=== PATIENT | male | born 1985 | race Hispanic/Latino ===

== ENCOUNTER 2024-08-19 14:00 | Emergency (ER) | payer OTHER ==
[~2024-08-19] VITALS: Ht 175.3 cm; Wt 85.9 kg
[2024-08-19] MEDS ORDERED: SUMA50TA2 PO (14:10)
[2024-08-19 16:11] VITALS: BP 134/68; TEMP 97.1; O2SAT 99
[2024-08-19] MEDS: KETOROLAC 30 MG/ML 1ML VIAL IV ONE (17:03)
[2024-08-19] MEDS: METOCLOPRAMIDE INJ 10MG/2ML VIAL IV ONE (17:03)
[2024-08-19] MEDS: diphenhydrAMINE 50MG/ML VIAL IV ONE (17:03)
[2024-08-19] MEDS: NS 1,000 ML IV ONE (17:04)
[2024-08-19] MEDS: ACETAMINOPHEN 500 MG TAB PO ONE (17:04)
[2024-08-19 17:26] LABS: BASO % 0.5 % (0.0-1.0); EOS # 0.1 10^3/uL (0.0-0.5); EOS % 0.9 % (0.0-3.0); HEMATOCRIT 44.1 % (42.0-52.0); HEMOGLOBIN 14.9 g/dl (13.5-17.5); LYMPH # 3.6 10^3/uL (1.5-5.0); LYMPH % 41.4 % (24.0-44.0); MEAN CORPUSCULAR HEMOGLOBIN 28.9 pg (27.0-33.0); MEAN CORPUSCULAR HGB CONC 33.8 g/dl (32.0-36.5); MEAN CORPUSCULAR VOLUME 85.6 fl (80.0-96.0); MONO # 0.8 10^3/uL (0.0-0.8); MONO % 8.7 % (2.0-8.0); NEUTROPHILS # 4.2 10^3/uL (1.5-8.5); NEUTROPHILS % 48.3 % (36.0-66.0); PLATELET COUNT, AUTOMATED 217 10^3/uL (150-450); RED BLOOD COUNT 5.15 10^6/uL (4.30-6.10); WHITE BLOOD COUNT 8.7 10^3/uL (4.0-10.0)
[2024-08-19 17:52] LABS: BLOOD UREA NITROGEN 15 MG/DL (9-23); CALCIUM LEVEL 9.3 MG/DL (8.5-10.1); CARBON DIOXIDE LEVEL 30 MMOL/L (20-31); CHLORIDE LEVEL 103 MMOL/L (98-107); CREATININE FOR GFR 0.91 MG/DL (0.70-1.30); GLOMERULAR FILTRATION RATE > 60.0 (>60); GLUCOSE, FASTING 70 MG/DL (60-100); SODIUM LEVEL 142 MMOL/L (136-145)
== END 2024-08-19 18:48 | disposition home or self-care (01) ==
LOC: M ED 14:00
DX: G43.909 Migraine, unspecified, not intractable, without status migrainosus (principal); K21.9 Gastro-esophageal reflux disease without esophagitis; Z79.899 Other long term (current) drug therapy
CPT/HCPCS: 70450; 80048; 85025; 87486; 87581; 87633; 87798; 96361; 96374; 99284; J1200; J1885; J2765

== ENCOUNTER → 2024-11-03 | Day surgery (SDC) | payer OTHER ==
[~2024-11-03] VITALS: Ht 175.3 cm; Wt 83.5 kg
[~2024-11-03] MED LIST: FAMO-142 PO; GLYCOPYRROLATE INJ 0.2 MG/ML 2 ML VIAL As Ordered ONE; HYDROMORPHONE HCL 0.5 MG/ 0.5 ML SYRINGE IV PRN; IBUP-1729; KETOROLAC 60MG 2ML VIAL As Ordered ONE; LIDOCAINE 1% SDV 5ML VIAL PN ONE; LIDOCAINE 1% SDV 5ML VIAL SC PRN; LIDOCAINE 2% 100MG/5ML SDV (FOR ANES.) As Ordered ONE; LR 1,000 ML IV SCH; MIDAZOLAM INJ 2MG/2ML VIAL As Ordered ONE; ONDANSETRON 4MG 2ML VIAL As Ordered ONE; ONDANSETRON 4MG 2ML VIAL IV PRN; ROCURONIUM BROMIDE 50MG/5ML VIAL As Ordered ONE; ROPIvacaine 0.5% 30ML VIAL PN ONE; SUGAMMADEX SODIUM 500 MG/5 ML VIAL (BRIDION) As Ordered ONE; SUMA100T2 PO; SUMA50TA2 PO; TADA5TAB94; THERTAB52 PO; TRANEXAMIC ACID 100 MG/ML 10ML VIAL As Ordered ONE; dexAMETHasone 10MG/1ML VIAL PRES.FREE PN ONE; ePHEDrine SULFATE 25 MG/5 ML(5MG/ML) SYRINGE As Ordered ONE; fentaNYL 100 MCG/2 ML INJECTION As Ordered ONE; fentaNYL 100 MCG/2 ML INJECTION IV PRN; oxyCODONE 5MG TAB PO PRN; propofoL 200 MG/20 ML VIAL As Ordered ONE
[2024-11-03] MEDS: fentaNYL 100 MCG/2 ML INJECTION IV PRN (13:40)
[2024-11-03] MEDS: MIDAZOLAM INJ 2MG/2ML VIAL IV PRN (13:40)
[2024-11-03] MEDS: ceFAZolin SOD 2 GM in IV 1 EA IV ONE (14:10)
[2024-11-03] MEDS: TRANEXAMIC ACID 100 MG/ML 10ML VIAL IV ONE (14:15)
[2024-11-03] MEDS: EPINEPHrine 1MG/ML INJ 30ML MD-VIAL As Ordered ONE (16:30)
[2024-11-03] MEDS: VANCOMYCIN 1000MG/20ML VIAL As Ordered ONE (16:53)
[2024-11-03 18:26] VITALS: BP 115/56; TEMP 97.2; O2SAT 96
== END | disposition home or self-care (01) ==
LOC: M SDC 11:54
PROVIDERS: ATTEND Orthopaedic Surgery
DX: S43.491A Other sprain of right shoulder joint, initial encounter (principal); M19.011 Primary osteoarthritis, right shoulder; Y93.B3 Activity, free weights; G43.909 Migraine, unspecified, not intractable, without status migrainosus; Y92.9 Unspecified place or not applicable; Y99.1 Military activity; K21.9 Gastro-esophageal reflux disease without esophagitis; Z79.899 Other long term (current) drug therapy; Z87.891 Personal history of nicotine dependence
CPT/HCPCS: 29807; C1713; J0171; J0690; J1100; J1596; J1885; J2250; J2405; J3010

== ENCOUNTER 2024-11-13 12:49 | Emergency (ER) | payer OTHER ==
[~2024-11-13] VITALS: Ht 175.3 cm; Wt 86.2 kg
[~2024-11-13 12:49] MED LIST changes: -GLYCOPYRROLATE INJ 0.2 MG/ML 2 ML VIAL As Ordered ONE; -HYDROMORPHONE HCL 0.5 MG/ 0.5 ML SYRINGE IV PRN; -KETOROLAC 60MG 2ML VIAL As Ordered ONE; -LIDOCAINE 1% SDV 5ML VIAL PN ONE; -LIDOCAINE 1% SDV 5ML VIAL SC PRN; -LIDOCAINE 2% 100MG/5ML SDV (FOR ANES.) As Ordered ONE; -LR 1,000 ML IV SCH; -MIDAZOLAM INJ 2MG/2ML VIAL As Ordered ONE; -ONDANSETRON 4MG 2ML VIAL As Ordered ONE; -ONDANSETRON 4MG 2ML VIAL IV PRN; -ROCURONIUM BROMIDE 50MG/5ML VIAL As Ordered ONE; -ROPIvacaine 0.5% 30ML VIAL PN ONE; -SUGAMMADEX SODIUM 500 MG/5 ML VIAL (BRIDION) As Ordered ONE; -TRANEXAMIC ACID 100 MG/ML 10ML VIAL As Ordered ONE; -dexAMETHasone 10MG/1ML VIAL PRES.FREE PN ONE; -ePHEDrine SULFATE 25 MG/5 ML(5MG/ML) SYRINGE As Ordered ONE; -fentaNYL 100 MCG/2 ML INJECTION As Ordered ONE; -fentaNYL 100 MCG/2 ML INJECTION IV PRN; -oxyCODONE 5MG TAB PO PRN; -propofoL 200 MG/20 ML VIAL As Ordered ONE
[2024-11-13] MEDS: KETOROLAC 30 MG/ML 1ML VIAL IV ONE (15:39)
[2024-11-13 15:42] LABS: BASO % 0.3 % (0.0-1.0); EOS % 0.3 % (0.0-3.0); HEMATOCRIT 45.4 % (42.0-52.0); HEMOGLOBIN 15.1 g/dl (13.5-17.5); LYMPH # 1.9 10^3/uL (1.5-5.0); LYMPH % 16.2 % (24.0-44.0); MEAN CORPUSCULAR HEMOGLOBIN 28.3 pg (27.0-33.0); MEAN CORPUSCULAR HGB CONC 33.3 g/dl (32.0-36.5); MEAN CORPUSCULAR VOLUME 85.2 fl (80.0-96.0); MONO # 1.1 10^3/uL (0.0-0.8); NEUTROPHILS # 8.8 10^3/uL (1.5-8.5); NEUTROPHILS % 73.8 % (36.0-66.0); PLATELET COUNT, AUTOMATED 220 10^3/uL (150-450); RED BLOOD COUNT 5.33 10^6/uL (4.30-6.10)
[2024-11-13 15:58] LABS: INR 0.98; PROTHROMBIN TIME 13.3 SECONDS (12.5-14.5)
[2024-11-13 16:15] LABS: ALBUMIN 4.4 G/DL (3.2-5.2); ALKALINE PHOSPHATASE 65 U/L (40-129); ALT/SGPT 44 U/L (7.0-40); AST/SGOT 21 U/L (<34); BILIRUBIN,DIRECT 0.2 MG/DL (<0.4); BILIRUBIN,TOTAL 1.2 MG/DL (0.3-1.2); TOTAL PROTEIN 7.8 G/DL (5.7-8.2)
[2024-11-13] MEDS ORDERED: ISOVUE-370 76% 100ML VIAL As Ordered ONE (16:30)
[2024-11-13 16:56] LABS: CK-MB VALUE MASS < 1.0 NG/ML (<3.6)
[2024-11-13] MEDS ORDERED: HEPARIN DRIP 25,000 UNITS in IV 1 EA IV SCH (17:00)
[2024-11-13] MEDS ORDERED: HEPARIN SOD (PORCINE) 5000UNITS/ML 1ML VIAL/SYRINGE IV ONE (17:00)
[2024-11-13 17:05] LABS: CPK CREATINE PHOSPHOKINASE 76 U/L (46-171); MB/CK RELATIVE INDEX 1.31 (< OR =4)
[2024-11-13] MEDS ORDERED: ELIQ5TAB PO (17:22)
[2024-11-13] MEDS: APIXABAN 5 MG TAB (ELIQUIS) PO ONE (17:41)
[2024-11-13 18:00] VITALS: BP 121/60; TEMP 97.9; O2SAT 99
[2024-11-14] MEDS ORDERED: ELIQ5TAB PO (13:07)
[2024-11-14] MEDS ORDERED: FAMO1TAB11 PO (13:09)
== END 2024-11-13 18:03 | disposition home or self-care (01) ==
LOC: M ED 12:49
DX: I26.99 Other pulmonary embolism without acute cor pulmonale (principal); I26.93 Single subsegmental thrombotic pulmonary embolism without acute cor pulmonale; J98.11 Atelectasis; G43.909 Migraine, unspecified, not intractable, without status migrainosus; Z79.01 Long term (current) use of anticoagulants; Z79.2 Long term (current) use of antibiotics; Z79.899 Other long term (current) drug therapy
CPT/HCPCS: 71045; 71275; 80047; 80076; 82550; 82553; 84484; 85025; 85610; 93005; 96374; 99284; J1885; Q9967

== ENCOUNTER 2024-11-14 04:42 | Observation (INO) | payer OTHER ==
[~2024-11-14] VITALS: Ht 175.3 cm; Wt 84.4 kg
[~2024-11-14 04:42] MED LIST changes: +ELIQ5TAB PO
[2024-11-14] MEDS: MORPHINE 4 MG/ML 1ML VIAL IV ONE (08:31)
[2024-11-14] MEDS: ONDANSETRON 4MG 2ML VIAL IV ONE (08:31)
[2024-11-14 08:46] LABS: BASO % 0.3 % (0.0-1.0); EOS % 0.2 % (0.0-3.0); HEMATOCRIT 46.5 % (42.0-52.0); HEMOGLOBIN 15.5 g/dl (13.5-17.5); LYMPH # 2.6 10^3/uL (1.5-5.0); LYMPH % 20.3 % (24.0-44.0); MEAN CORPUSCULAR HEMOGLOBIN 28.7 pg (27.0-33.0); MEAN CORPUSCULAR HGB CONC 33.3 g/dl (32.0-36.5); MEAN CORPUSCULAR VOLUME 86.1 fl (80.0-96.0); MONO # 1.2 10^3/uL (0.0-0.8); MONO % 9.4 % (2.0-8.0); NEUTROPHILS # 8.7 10^3/uL (1.5-8.5); NEUTROPHILS % 69.5 % (36.0-66.0); PLATELET COUNT, AUTOMATED 226 10^3/uL (150-450); WHITE BLOOD COUNT 12.6 10^3/uL (4.0-10.0)
[2024-11-14] MEDS: APIXABAN 5 MG TAB (ELIQUIS) PO ONE (09:01)
[2024-11-14] MEDS: MORPHINE 2 MG/ML 1ML VIAL IV PRN (09:01)
[2024-11-14 09:03] LABS: INR 1.06; PARTIAL THROMBOPLASTIN TIME 31.3 SECONDS (24.8-34.2); PROTHROMBIN TIME 14.1 SECONDS (12.5-14.5)
[2024-11-14 09:18] LABS: BLOOD UREA NITROGEN 17 MG/DL (9-23); CALCIUM LEVEL 9.5 MG/DL (8.5-10.1); CARBON DIOXIDE LEVEL 26 MMOL/L (20-31); CHLORIDE LEVEL 106 MMOL/L (98-107); CK-MB VALUE MASS < 1.0 NG/ML (<3.6); CREATININE FOR GFR 0.85 MG/DL (0.70-1.30); GLOMERULAR FILTRATION RATE > 60.0 (>60); GLUCOSE, FASTING 96 MG/DL (60-100); POTASSIUM SERUM 4.8 MMOL/L (3.5-5.1); SODIUM LEVEL 139 MMOL/L (136-145)
[2024-11-14 09:22] LABS: CPK CREATINE PHOSPHOKINASE 79 U/L (46-171); MB/CK RELATIVE INDEX 1.26 (< OR =4)
[2024-11-14] MEDS: ALBUTEROL 90 MCG/ACT 8GM HFA INHALER INH ONE (09:30)
[2024-11-14] MEDS ORDERED: ALBUTEROL 90 MCG/ACT 8GM HFA INHALER INH PRN (11:25)
[2024-11-14] MEDS: MIRALAX *UNIT DOSE* 17GM PACKET PO SCH (11:33)
[2024-11-14] MEDS: SENNA 8.6 MG TAB (SENOKOT) PO SCH (11:33)
[2024-11-14 12:29] LABS: ALBUMIN 3.8 G/DL (3.2-5.2); BILIRUBIN,DIRECT 0.2 MG/DL (<0.4); BILIRUBIN,TOTAL 0.9 MG/DL (0.3-1.2); TOTAL PROTEIN 7.1 G/DL (5.7-8.2)
[2024-11-14] MEDS ORDERED: ELIQ5TAB PO (13:07)
[2024-11-14] MEDS ORDERED: FAMO1TAB11 PO (13:09)
[2024-11-14] MEDS ORDERED: HOME MED LIST COMPLETE! XX SCH (13:15)
[2024-11-14] MEDS: BISACODYL 10MG SUPP PR ONE (14:24)
[2024-11-14] MEDS: FLEET ENEMA PR PRN (15:28)
[2024-11-14 21:04] VITALS: BP 131/68; TEMP 97.6; O2SAT 96
[2024-11-14] MEDS: APIXABAN 5 MG TAB (ELIQUIS) PO SCH (21:39)
[2024-11-14] MEDS ORDERED: ACETAMINOPHEN 500 MG TAB PO PRN (22:25)
[2024-11-14] MEDS ORDERED: ACETAMINOPHEN 325 MG TAB PO PRN (22:25)
[2024-11-14 22:38] VITALS: O2SAT 98
[2024-11-14] MEDS: ACETAMINOPHEN *IV* 1,000 MG in IV 1 EA IV ONE (22:38)
[2024-11-14 23:08] VITALS: O2SAT 98
[2024-11-15 00:31] VITALS: BP 118/61; TEMP 97.6; O2SAT 96
[2024-11-15 04:18] VITALS: BP 123/63; TEMP 97.6; O2SAT 97
[2024-11-15] MEDS ORDERED: ACETAMINOPHEN 500 MG TAB PO PRN (07:10)
[2024-11-15 07:37] LABS: HEMATOCRIT 41.7 % (42.0-52.0); HEMOGLOBIN 13.8 g/dl (13.5-17.5); MEAN CORPUSCULAR HEMOGLOBIN 28.3 pg (27.0-33.0); MEAN CORPUSCULAR HGB CONC 33.1 g/dl (32.0-36.5); MEAN CORPUSCULAR VOLUME 85.6 fl (80.0-96.0); PLATELET COUNT, AUTOMATED 215 10^3/uL (150-450); RED BLOOD COUNT 4.87 10^6/uL (4.30-6.10); WHITE BLOOD COUNT 11.3 10^3/uL (4.0-10.0)
[2024-11-15 08:00] VITALS: BP 128/69; TEMP 97.7; O2SAT 98
[2024-11-15 08:14] LABS: BLOOD UREA NITROGEN 12 MG/DL (9-23); CALCIUM LEVEL 9.1 MG/DL (8.5-10.1); CARBON DIOXIDE LEVEL 30 MMOL/L (20-31); CHLORIDE LEVEL 103 MMOL/L (98-107); GLOMERULAR FILTRATION RATE > 60.0 (>60); GLUCOSE, FASTING 94 MG/DL (60-100); POTASSIUM SERUM 4.4 MMOL/L (3.5-5.1); SODIUM LEVEL 140 MMOL/L (136-145)
[2024-11-15] MEDS ORDERED: ISOVUE-370 76% 100ML VIAL As Ordered ONE (08:15)
[2024-11-15 11:14] VITALS: O2SAT 97
[2024-11-15 12:00] VITALS: BP 130/64; TEMP 98.5; O2SAT 98
[2024-11-15 12:14] LABS: HEMATOCRIT 44.9 % (42.0-52.0); HEMOGLOBIN 14.8 g/dl (13.5-17.5); MEAN CORPUSCULAR HEMOGLOBIN 28.1 pg (27.0-33.0); MEAN CORPUSCULAR VOLUME 85.4 fl (80.0-96.0); PLATELET COUNT, AUTOMATED 237 10^3/uL (150-450); RED BLOOD COUNT 5.26 10^6/uL (4.30-6.10); WHITE BLOOD COUNT 11.8 10^3/uL (4.0-10.0)
[2024-11-15] MEDS: AUGMENTIN 875 MG TAB PO SCH (12:41)
[2024-11-15] MEDS: DOXYCYCLINE HYCLATE 100MG TABLET PO SCH (12:41)
[2024-11-15] MEDS ORDERED: ACET-683 PO (12:52)
[2024-11-15] MEDS ORDERED: DOXY100T PO (12:52)
[2024-11-15] MEDS ORDERED: AMOX875T2 PO (12:52)
[2024-11-15] MEDS ORDERED: MIRA33506 PO (12:52)
[2024-11-15] MEDS ORDERED: SENO8.6T5 PO (12:52)
[2024-11-15] MEDS ORDERED: FAMO1TAB11 PO (12:52)
== END 2024-11-15 14:44 | disposition home or self-care (01) ==
LOC: M ED 04:42 → M ED INP 16:12 → M MS4PR 21:04
PROVIDERS: ADMIT Student in an Organized Health Care Education/Training Program; ATTEND Student in an Organized Health Care Education/Training Program
DX: R10.11 Right upper quadrant pain (principal); K59.03 Drug induced constipation; J18.9 Pneumonia, unspecified organism; D72.829 Elevated white blood cell count, unspecified; I26.93 Single subsegmental thrombotic pulmonary embolism without acute cor pulmonale; J98.11 Atelectasis; K21.9 Gastro-esophageal reflux disease without esophagitis; G43.909 Migraine, unspecified, not intractable, without status migrainosus; Z79.01 Long term (current) use of anticoagulants; Z79.2 Long term (current) use of antibiotics; Z79.899 Other long term (current) drug therapy
CPT/HCPCS: 36415; 71045; 74018; 74177; 80048; 80076; 82550; 82553; 83605; 83880; 84484; 85025; 85027; 85610; 85730; 87486; 87581; 87633; 87798; 93005; 93041; 93971; 94010; 94640; 96374; 96375; 96376; 99285; J0131; J2405; Q9967